=== PATIENT | male | born 1980 ===

== ENCOUNTER 2019-10-19 16:18 | Outpatient (CLI) | payer SELFPAY | END 2019-10-19 16:19 | disposition EMS.NT | LOC: EMS 16:18 | PROVIDERS: ATTEND Surgery | DX: T75.1XXA Unspecified effects of drowning and nonfatal submersion, initial encounter (principal); W16.41XA Fall into unspecified water causing drowning and submersion, initial encounter; Y93.18 Activity, surfing, windsurfing and boogie boarding; Y92.832 Beach as the place of occurrence of the external cause ==